=== PATIENT | female | born 1975 | race Caucasian/White ===

== ENCOUNTER 2016-09-25 16:08 | Outpatient (CLI) | payer MEDICAID ==
[2016-09-25 13:26] LABS: BASOPHILS # (AUTO) 0.1 10^3/uL (0.0-0.1); BASOPHILS % (AUTO) 1.1 %; EOSINOPHILS # (AUTO) 0.1 10^3/uL (0.0-0.7); EOSINOPHILS % (AUTO) 2.2 %; HCT - HEMATOCRIT 35.7 % (37.0-47.0); HGB - HEMOGLOBIN 12.3 g/dL (12.0-16.0); LYMPHOCYTES # (AUTO) 1.7 10^3/uL (1.5-3.5); LYMPHOCYTES % (AUTO) 35.7 %; MEAN CORPUSCULAR HEMOGLOBIN 31.4 pg (27.0-31.0); MEAN CORPUSCULAR HGB CONC 34.5 g/dL (32.0-36.0); MEAN CORPUSCULAR VOLUME 91.1 fL (81.0-99.0); MEAN PLATELET VOLUME 8.7 fL (7.9-10.8); MONOCYTES # (AUTO) 0.4 10^3/uL (0.0-1.0); NEUTROPHILS # (AUTO) 2.6 10^3/uL (1.5-6.6); RED BLOOD COUNT 3.92 10^6/uL (4.20-5.40); UNCORRECTED WHITE BLOOD COUNT 4.9 x10^3/uL; WHITE BLOOD COUNT 4.9 x10^3/uL (4.8-10.8)
[2016-09-25 13:47] LABS: ALBUMIN/GLOBULIN RATIO 1.4 (1.0-2.2); BILIRUBIN,TOTAL 0.2 mg/dL (0.2-1.0); CALCIUM 9.4 mg/dL (8.5-10.3); CREATININE 0.8 mg/dL (0.4-1.0); POTASSIUM 3.6 mmol/L (3.5-5.0); TOTAL PROTEIN 7.1 g/dL (6.7-8.2)
[2016-09-28 11:58] LABS: TEST RESULT REPORT (())
== END 2016-09-25 16:09 | disposition home or self-care (01) ==
LOC: LAB.N 16:08
PROVIDERS: ATTEND Psychiatry & Neurology Neurology
DX: G40.814 Lennox-Gastaut syndrome, intractable, without status epilepticus (principal); G40.319 Generalized idiopathic epilepsy and epileptic syndromes, intractable, without status epilepticus
CPT/HCPCS: 36415; 80053; 80175; 80346; 81599; 85025

== ENCOUNTER 2017-09-17 08:47 | Outpatient (CLI) | payer MEDICAID ==
[2017-09-17 12:51] LABS: BASOPHILS # (AUTO) 0.1 10^3/uL (0.0-0.1); EOSINOPHILS # (AUTO) 0.1 10^3/uL (0.0-0.7); EOSINOPHILS % (AUTO) 2.4 %; HGB - HEMOGLOBIN 12.3 g/dL (12.0-16.0); LYMPHOCYTES # (AUTO) 1.6 10^3/uL (1.5-3.5); MEAN CORPUSCULAR HEMOGLOBIN 31.2 pg (27.0-31.0); MEAN CORPUSCULAR HGB CONC 33.9 g/dL (32.0-36.0); MEAN CORPUSCULAR VOLUME 92.1 fL (81.0-99.0); MEAN PLATELET VOLUME 8.2 fL (7.9-10.8); MONOCYTES # (AUTO) 0.4 10^3/uL (0.0-1.0); MONOCYTES % (AUTO) 8.9 %; NEUTROPHILS # (AUTO) 2.7 10^3/uL (1.5-6.6); NEUTROPHILS % (AUTO) 54.7 %; PLT - PLATELET COUNT 245 10^3/uL (130-450); RED BLOOD COUNT 3.94 10^6/uL (4.20-5.40); RED CELL DISTRIBUTION WIDTH 13.2 % (12.0-15.0); WHITE BLOOD COUNT 4.9 x10^3/uL (4.8-10.8)
[2017-09-17 12:57] LABS: ALBUMIN/GLOBULIN RATIO 1.3 (1.0-2.2); BILIRUBIN,TOTAL 0.7 mg/dL (0.2-1.0); CALCIUM 8.9 mg/dL (8.5-10.3); CREATININE 0.7 mg/dL (0.4-1.0); TOTAL PROTEIN 7.2 g/dL (6.7-8.2)
== END 2017-09-17 08:48 | disposition home or self-care (01) ==
LOC: LAB.N 08:47
PROVIDERS: ATTEND Psychiatry & Neurology Neurology
DX: Z79.899 Other long term (current) drug therapy (principal)
CPT/HCPCS: 36415; 80053; 80175; 80346; 81599; 85025

== ENCOUNTER 2017-12-07 10:39 | Emergency (ER) | payer MEDICAID ==
[2017-12-07] MEDS ORDERED: TRIAMCINOLONE 40 MG/ML VIAL IM STA (11:23)
--- NOTE | 2017-12-07 11:25 | ED Physician Documentation ---
PD HANNA DYSON - Stated complaint Stated Complaint: R EAR SWELLING - Chief complaint Chief Complaint: General - History obtained from History obtained from: Family - History of Present Illness Timing - onset: How many days ago (5) Timing - duration: Days (5) Timing - details: Gradual onset, Still present Location: Right ear Improves: Other (drainage) Associated symptoms: Congestion, Cough. No: Fever Similar symptoms before: No diagnosis Recently seen: Clinic - Additional information Additional information: 41-year-old female with daily seizure disorder has the mental capacity of a 1- year-old and she is brought to the emergency department today by her parents who indicate that she woke up with swelling to her right ear 5 days ago and at that time she went into see her primary care doctor in this area was drained. They brought her back to see the primary the culture was negative for infection the swelling had reduced and this morning the swelling is back again. She does not appear to be bothered much by this does not appear to be in much pain. The patient herself is unable to assist with any history. Review of Systems Constitutional: denies: Fever Eyes: denies: Decreased vision Ears: reports: Ear pain, Other (swelling to the auricle) Nose: reports: Congestion Throat: denies: Sore throat Cardiac: denies: Chest pain / pressure, Palpitations Respiratory: reports: Cough. 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 - Past Surgical History Past Surgical History: No - Present Medications Home Medications: Ambulatory Orders Medication Instructions Recorded Confirmed Clobazam [Onfi] 20 - 30 mg PO BID 04/18/14 04/18/14 lamoTRIgine [Lamictal] 450 mg PO BID 04/18/14 04/18/14 - Allergies Allergies/Adverse Reactions: Allergies Allergy/AdvReac Type Severity Reaction Status Date / Time No Known Drug Allergies Allergy Verified 12/07/17 10:44 - Social History Does the pt smoke?: No Smoking Status: Never smoker Does the pt drink ETOH?: No Does the pt have substance abuse?: No - Immunizations Immunizations are current?: Yes PD ED PE NORMAL - Vitals Vital signs reviewed: Yes (normal ) - General General: No acute distress, Well developed/nourished, Other (no siginificant interaction with this patient who is carrying a small doll and does tickle the doll .) - HEENT HEENT: Atraumatic, PERRL, EOMI, Other (over the right auricle there is swelling and fluctuance. The area does not appear angry and there is not much in the way of inflamation. ) - Neck Neck: Supple, no meningeal sign, No bony TTP - Respiratory Respiratory: No respiratory distress - Derm Derm: Normal color, Warm and dry - Extremities Extremities: No deformity, No edema - Neuro Neuro: No motor deficit, No sensory deficit Eye Opening: Spontaneous Motor: Obeys Commands Verbal: Oriented GCS Score: 15 - Psych Psych: Normal mood, Normal affect Results - Vitals Vitals: Vital Signs - 24 hr 12/07/17 12/07/17 10:41 12:54 Temperature 36.1 C L Heart Rate 93 74 Respiratory 20 16 Rate Blood Pressure 98/77 90/62 O2 Saturation 99 99 Oxygen O2 Source Room air Procedures - Abscess I&D (location) right aruicle Preparation: Chlorhexadine, Lidocaine 1% Incision: Needle aspiration, Culture obtained Other: Pt tolerated well, Other (culture obtained and kenalog instilled.) PD MEDICAL DECISION MAKING - ED course Complexity details: reviewed old records, reviewed results, re-evaluated patient , considered differential, d/w family ED course: 41-year-old female with severe developmental delay developed an odd swelling to the auricle of her right ear. It does appear to have a tissue plane does not appear to be acutely injured or to hurt the patient much, and there is some mild inflammation associated with this. It does not appear grossly infected. The fluid is drained from this area and a culture is obtained and Kenalog is introduced into the space. She will need follow-up with ENT and this has been set up prior to her visit here. This does not seem to fit a plain hematoma and does not appear to be a simple abcess. The fluid has accumulated and distended the area again and this is drained and today we have instilled kenalog as well. I am favoring sandy-chondritis as a working diagnosis and welcome the input of the ENT. - Sepsis Event Vital Signs: Vital Signs - 24 hr 12/07/17 12/07/17 10:41 12:54 Temperature 36.1 C L Heart Rate 93 74 Respiratory 20 16 Rate Blood Pressure 98/77 90/62 O2 Saturation 99 99 Oxygen O2 Source Room air Departure - Departure Disposition: 01 Home, Self Care Clinical Impression: Perichondritis of auricle Qualifiers: Laterality: right Qualified Code(s): H61.001 - Unspecified perichondritis of right external ear Condition: Stable Follow-Up: [facility] [place] [Provider Group] Comments: Today it appears Crystal has an inflammatory process of the auricle of the right ear. The fluid drained today was thin and bloody and we did instill Kenalog into the space. The expectation with this is that the inflammation will be reduced and the ear will have a more normal appearance. Follow-up with ENT in [place] as previously planned as further treatment may be necessary. A culture has been obtained today and results will be available in 1-3 days. Discharge Date/Time: 12/07/17 12:54
[2017-12-07] MEDS ORDERED: LIDOCAINE 1% 2 ML VIAL ONE (11:26)
[2017-12-07] MEDS ORDERED: BUFFERED LIDOCAINE 10 ML SYRINGE SUBQ STA (11:26)
[2017-12-07 12:55] VITALS: BP 90/62
== END 2017-12-07 12:54 | disposition home or self-care (01) ==
LOC: ED 10:39
DX: H61.001 Unspecified perichondritis of right external ear (principal); G40.812 Lennox-Gastaut syndrome, not intractable, without status epilepticus
CPT/HCPCS: 69000; 87070; 87205; 96372; 99283

== ENCOUNTER 2018-07-18 19:04 | Emergency (ER) | payer MEDICAID ==
[2018-07-18 22:16] VITALS: BP 93/63
--- NOTE | 2018-07-18 23:16 | ED Physician Documentation ---
PD HPI HEAD INJURY - Stated complaint Stated Complaint: SZ/HEAD LAC - Chief complaint Chief Complaint: Laceration - History obtained from History obtained from: Family - History of Present Illness Mechanism of head injury: Fell Where head injury occurred: Home Timing - onset: Today Associated symptoms: No: LOC, AMS Recently seen: Not recently seen - Additional information Additional information: patient had seizure this evening, causing her to fall, struck head on door hinge, sustained scalp laceration. family says she has seizures on a daily basis and there was nothing unusual about this seizure except for the injury itself. family says patient exhibits no unusual behavior from baseline (mental capacity is that of a 1-2 year old, per family). 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 HEENT: None Psych: None Musculoskeletal: None Derm: None - Past Surgical History Past Surgical History: No - Present Medications Home Medications: Ambulatory Orders Medication Instructions Recorded Confirmed Clobazam [Onfi] 20 - 30 mg PO BID 04/18/14 04/18/14 lamoTRIgine [Lamictal] 450 mg PO BID 04/18/14 04/18/14 - Allergies Allergies/Adverse Reactions: Allergies Allergy/AdvReac Type Severity Reaction Status Date / Time No Known Drug Allergies Allergy Verified 07/18/18 19:34 - Social History Does the pt smoke?: No Smoking Status: Never smoker Does the pt drink ETOH?: No Does the pt have substance abuse?: No - Immunizations Immunizations are current?: Yes - POLST Patient has POLST: No PD ED PE NORMAL - Vitals Vital signs reviewed: Yes - General General: No acute distress, Well developed/nourished, Other (awake, alert, makes eye contact at times. ) - HEENT HEENT: PERRL, EOMI, Moist mucous membranes PD ED PE EXPANDED - HEENT HEENT Visual: 1 - laceration (3 cm length) Results - Vitals Vitals: Oxygen O2 Source Room air Procedures - Laceration (location) Scalp Length in cm: 3 Wound type: Linear Neurovascular status: Vascular intact Anesthesia: Lidocaine 1% Wound Preparation: Chlorhexadine Skin layer closure: Smith Other: Patient tolerated well, No complications, Dressing applied, Tetanus UTD Complexity: Simple PD MEDICAL DECISION MAKING - ED course Complexity details: considered differential, d/w family Departure - Departure Disposition: 01 Home, Self Care Clinical Impression: Laceration Condition: Good Instructions: ED Laceration Scalp Stitch Or Stap Follow-Up: Riley Palencia PA-C [Primary Care Provider] - (Follow up in 7-10 days for removal of the smith) Discharge Date/Time: 07/19/18 00:55
[2018-07-18] MEDS ORDERED: LIDOCAINE 1% 2 ML VIAL SUBQ STA (23:24)
== END 2018-07-19 00:55 | disposition home or self-care (01) ==
LOC: ED 19:04
DX: S01.01XA Laceration without foreign body of scalp, initial encounter (principal); W22.8XXA Striking against or struck by other objects, initial encounter; Y92.009 Unspecified place in unspecified non-institutional (private) residence as the place of occurrence of the external cause; G40.909 Epilepsy, unspecified, not intractable, without status epilepticus
CPT/HCPCS: 12002; 99282; 99283

== ENCOUNTER 2018-09-30 08:00 | Outpatient (CLI) | payer MEDICAID ==
[2018-09-30 12:41] LABS: EOSINOPHILS # (AUTO) 0.1 10^3/uL (0.0-0.7); LYMPHOCYTES # (AUTO) 1.8 10^3/uL (1.5-3.5); LYMPHOCYTES % (AUTO) 37.6 %; MEAN CORPUSCULAR HEMOGLOBIN 30.7 pg (27.0-31.0); MEAN CORPUSCULAR HGB CONC 33.4 g/dL (32.0-36.0); MEAN CORPUSCULAR VOLUME 91.9 fL (81.0-99.0); MEAN PLATELET VOLUME 8.2 fL (7.9-10.8); MONOCYTES # (AUTO) 0.4 10^3/uL (0.0-1.0); MONOCYTES % (AUTO) 7.2 %; NEUTROPHILS # (AUTO) 2.6 10^3/uL (1.5-6.6); NEUTROPHILS % (AUTO) 52.2 %; PLT - PLATELET COUNT 267 10^3/uL (130-450); RED BLOOD COUNT 4.23 10^6/uL (4.20-5.40); RED CELL DISTRIBUTION WIDTH 13.4 % (12.0-15.0); WHITE BLOOD COUNT 4.9 x10^3/uL (4.8-10.8)
[2018-09-30 12:52] LABS: ALBUMIN 4.1 g/dL (3.2-5.5); ALBUMIN/GLOBULIN RATIO 1.2 (1.0-2.2); BILIRUBIN,TOTAL 0.5 mg/dL (0.2-1.0); CALCIUM 9.1 mg/dL (8.5-10.3); CREATININE 0.8 mg/dL (0.4-1.0); TOTAL PROTEIN 7.4 g/dL (6.7-8.2)
== END 2018-09-30 23:59 | disposition home or self-care (01) ==
LOC: LAB.N 08:00
PROVIDERS: ATTEND Psychiatry & Neurology Neurology
DX: G40.814 Lennox-Gastaut syndrome, intractable, without status epilepticus (principal); Z51.81 Encounter for therapeutic drug level monitoring
CPT/HCPCS: 36415; 80053; 80175; 80346; 81599; 85025

== ENCOUNTER 2019-01-06 15:13 | Outpatient (CLI) | payer MEDICAID ==
--- NOTE | 2019-01-07 18:34 | XRAY Report ---
Reason: JOINT PAIN Procedure Date: 01/06/2019 Accession Number: [id number] / [id number] Procedure: XRN - Ankle 3 View RT CPT Code: FULL RESULT: EXAMS: RIGHT FOOT AND ANKLE RADIOGRAPHY. EXAM DATE: 01/06/2019 03:56 PM. CLINICAL HISTORY: Right foot/ankle joint pain, bruising, swelling. COMPARISON: FOOT 3 VIEW RT 01/06/2019 3:49 PM. TECHNIQUE: 3 views each foot and ankle. FINDINGS: Bones: Oblique mildly displaced fracture of the distal right fibula at the level of the syndesmosis. No other fracture seen in the right foot or ankle. Joints: Normal. No effusions. No subluxations in the foot or ankle. The ankle mortise is normally aligned. Soft Tissues: Ankle swelling. IMPRESSION: Oblique mildly displaced fracture of the distal right fibula at the level of the syndesmosis. No other fracture seen in the right foot or ankle. RADIA
--- NOTE | 2019-01-07 18:34 | XRAY Report ---
Reason: ANKLE PAIN Procedure Date: 01/06/2019 Accession Number: [id number] / [id number] Procedure: XRN - Foot 3 View RT CPT Code: FULL RESULT: EXAMS: RIGHT FOOT AND ANKLE RADIOGRAPHY. EXAM DATE: 01/06/2019 03:56 PM. CLINICAL HISTORY: Right foot/ankle joint pain, bruising, swelling. COMPARISON: FOOT 3 VIEW RT 01/06/2019 3:49 PM. TECHNIQUE: 3 views each foot and ankle. FINDINGS: Bones: Oblique mildly displaced fracture of the distal right fibula at the level of the syndesmosis. No other fracture seen in the right foot or ankle. Joints: Normal. No effusions. No subluxations in the foot or ankle. The ankle mortise is normally aligned. Soft Tissues: Ankle swelling. IMPRESSION: Oblique mildly displaced fracture of the distal right fibula at the level of the syndesmosis. No other fracture seen in the right foot or ankle. RADIA
== END 2019-01-06 15:14 | disposition home or self-care (01) ==
LOC: DI.N 15:13
PROVIDERS: ATTEND Physician Assistant Medical
DX: S82.431A Displaced oblique fracture of shaft of right fibula, initial encounter for closed fracture (principal)

== ENCOUNTER 2019-02-09 10:29 | Outpatient (CLI) | payer MEDICAID ==
--- NOTE | 2019-02-09 14:19 | XRAY Report ---
Reason: ANKLE FRACTURE Procedure Date: 02/09/2019 Accession Number: [id number] / [id number] Procedure: XRN - Ankle 3 View RT CPT Code: FULL RESULT: EXAM: RIGHT ANKLE RADIOGRAPHY EXAM DATE: 02/09/2019 10:46 AM. CLINICAL HISTORY: ANKLE FRACTURE. COMPARISON: ANKLE 3 VIEW RT 01/06/2019 3:59 PM. TECHNIQUE: 3 views. FINDINGS: Bones: Ongoing osseous remodeling including periosteal reaction formation and new bone deposition is seen in the region of the distal fibular fracture. Joints: The ankle mortise appears preserved on the stress view. No dislocation. Soft Tissues: Normal. No soft tissue swelling. IMPRESSION: Ongoing healing of distal fibular fracture. RADIA
== END 2019-02-09 10:30 | disposition home or self-care (01) ==
LOC: DI.N 10:29
PROVIDERS: ATTEND Physician Assistant Medical
DX: S82.831D Other fracture of upper and lower end of right fibula, subsequent encounter for closed fracture with routine healing (principal)

== ENCOUNTER 2019-04-08 15:53 | Outpatient (CLI) | payer MEDICAID ==
--- NOTE | 2019-04-09 09:13 | XRAY Report ---
Reason: ANKLE JOINT PAIN Procedure Date: 04/08/2019 Accession Number: [id number] / [id number] Procedure: XRN - Foot 3 View RT CPT Code: Final Report FULL RESULT: EXAM: RIGHT FOOT RADIOGRAPHY EXAM DATE: 04/08/2019 04:18 PM. CLINICAL HISTORY: Ankle joint pain. COMPARISON: ANKLE 3 VIEW RT 04/08/2019 4:12 PM. TECHNIQUE: 3 views. FINDINGS: Bones: The healing ankle fracture is better depicted on the ankle radiographs. No additional fractures are seen. Joints: Normal. No subluxations. Soft Tissues: Normal. No soft tissue swelling. IMPRESSION: No additional fractures are identified, healing distal fibula fracture. RADIA
--- NOTE | 2019-04-09 09:13 | XRAY Report ---
Reason: ANKLE JOINT PAIN Procedure Date: 04/08/2019 Accession Number: [id number] / [id number] Procedure: XRN - Ankle 3 View RT CPT Code: Final Report FULL RESULT: EXAM: RIGHT ANKLE RADIOGRAPHY EXAM DATE: 04/08/2019 04:12 PM. CLINICAL HISTORY: Ankle joint pain. COMPARISON: ANKLE 3 VIEW RT 02/09/2019 10:50 AM. TECHNIQUE: 3 views. FINDINGS: Bones: There is ongoing healing of a distal fibular fracture with new bone formation and partial osseous bridging, the fracture pattern remains visible. Joints: Normal. No effusion. No subluxations. The ankle mortise remains aligned. Soft Tissues: Soft tissue swelling is noted at the lateral malleolus. IMPRESSION: Ongoing healing of distal fibular fracture. RADIA
== END 2019-04-08 15:54 | disposition home or self-care (01) ==
LOC: DI.N 15:53
PROVIDERS: ATTEND Physician Assistant Medical
DX: S82.831D Other fracture of upper and lower end of right fibula, subsequent encounter for closed fracture with routine healing (principal)

== ENCOUNTER 2019-05-12 12:52 | Outpatient (CLI) | payer MEDICAID ==
--- NOTE | 2019-05-12 15:48 | XRAY Report ---
Reason: CLOSED FRACTURE OF DISTAL END OF RT FIBULA Procedure Date: 05/12/2019 Accession Number: [id number] / [id number] Procedure: XRN - Ankle 3 View RT CPT Code: Final Report FULL RESULT: EXAM: RIGHT ANKLE RADIOGRAPHY EXAM DATE: 05/12/2019 01:13 PM. CLINICAL HISTORY: CLOSED FRACTURE OF DISTAL END OF RT FIBULA. COMPARISON: FOOT 3 VIEW RT 04/08/2019 4:15 PM ANKLE 3 VIEW RT 04/08/2019 4:12 PM ANKLE 3 VIEW RT 02/09/2019 10:50 AM. TECHNIQUE: 3 views. FINDINGS: Bones: Oblique Lopez C fracture of the distal right fibula with mild callus formation, as before. Lucent fracture line is still visible, best seen on the lateral view. No new fracture or focal bone lesion. Joints: Normal. No effusion. No subluxations. The ankle mortise is normally aligned. Soft Tissues: Normal. No soft tissue swelling. IMPRESSION: Incompletely healed Lopez C fracture of the right distal fibula, similar to before. RADIA
== END 2019-05-12 12:53 | disposition home or self-care (01) ==
LOC: DI.N 12:52
PROVIDERS: ATTEND Podiatrist Foot & Ankle Surgery
DX: S82.831D Other fracture of upper and lower end of right fibula, subsequent encounter for closed fracture with routine healing (principal)

== ENCOUNTER 2019-10-08 07:57 | Outpatient (CLI) | payer MEDICARE, MEDICAID ==
[2019-10-08 11:51] LABS: BASOPHILS # (AUTO) 0.1 10^3/uL (0.0-0.1); BASOPHILS % (AUTO) 1.1 %; EOSINOPHILS # (AUTO) 0.2 10^3/uL (0.0-0.7); HGB - HEMOGLOBIN 12.3 g/dL (12.0-16.0); LYMPHOCYTES # (AUTO) 2.4 10^3/uL (1.5-3.5); LYMPHOCYTES % (AUTO) 42.4 %; MEAN CORPUSCULAR HEMOGLOBIN 30.7 pg (27.0-31.0); MEAN CORPUSCULAR HGB CONC 32.7 g/dL (32.0-36.0); MEAN CORPUSCULAR VOLUME 93.8 fL (81.0-99.0); MEAN PLATELET VOLUME 10.1 fL (7.9-10.8); MONOCYTES # (AUTO) 0.6 10^3/uL (0.0-1.0); NEUTROPHILS # (AUTO) 2.4 10^3/uL (1.5-6.6); NEUTROPHILS % (AUTO) 43.1 %; PLT - PLATELET COUNT 277 10^3/uL (130-450); RED BLOOD COUNT 4.01 10^6/uL (4.20-5.40); RED CELL DISTRIBUTION WIDTH 13.6 % (12.0-15.0); WHITE BLOOD COUNT 5.6 x10^3/uL (4.8-10.8)
[2019-10-08 12:05] LABS: ALBUMIN 4.2 g/dL (3.2-5.5); ALBUMIN/GLOBULIN RATIO 1.4 (1.0-2.2); BILIRUBIN,TOTAL 0.4 mg/dL (0.2-1.0); CALCIUM 8.9 mg/dL (8.5-10.3); CREATININE 0.8 mg/dL (0.4-1.0); TOTAL PROTEIN 7.3 g/dL (6.7-8.2)
== END 2019-10-08 23:59 | disposition home or self-care (01) ==
LOC: LAB.WCP 07:57
PROVIDERS: ATTEND Psychiatry & Neurology Neurology
DX: G40.814 Lennox-Gastaut syndrome, intractable, without status epilepticus (principal); Z79.899 Other long term (current) drug therapy; Z51.81 Encounter for therapeutic drug level monitoring
CPT/HCPCS: 36415; 80053; 80175; 80346; 81599; 85025

== ENCOUNTER 2019-12-10 20:47 | Emergency (ER) | payer MEDICARE, MEDICAID ==
[2019-12-10] MEDS ORDERED: LIDOCAINE-EPINEPH-TETRACAINE 3 ML SYRINGE TOP STA (22:24)
[2019-12-10] MEDS ORDERED: BUFFERED LIDOCAINE 10 ML SYRINGE IU ONE (22:25)
[2019-12-10] MEDS ORDERED: LIDOCAINE 1% 2 ML VIAL ONE (22:46)
[2019-12-10 23:44] VITALS: BP 110/68
--- NOTE | 2019-12-10 23:48 | ED Physician Documentation ---
History of Present Illness - Stated complaint Stated Complaint: FACE LAC - Chief complaint Chief Complaint: Neuro - History obtained from History obtained from: Family - Additonal information Additional information: Severely cognitive delay impaired patient brought in by parents after falling and hitting her lip and chin on her walker. Parent states she was walking along when her legs suddenly gave out and she struck her face on the walker. Parents state this happens from time to time the patient, though she has not been injured to this great degree before. They are not sure if she has broken a tooth. They have noted a lower lip laceration, as well as some abrasions on the patient's chin. They do not think the patient was injured in any other way. Patient is not able to offer any information for herself. Parents deny LOC. 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 : None HEENT: None Psych: None Musculoskeletal: None Derm: None - Past Surgical History Past Surgical History: No - Present Medications Home Medications: Ambulatory Orders Medication Instructions Recorded Confirmed Clobazam [Onfi] 20 - 30 mg PO BID 04/18/14 04/18/14 lamoTRIgine [Lamictal] 450 mg PO BID 04/18/14 04/18/14 - Allergies Allergies/Adverse Reactions: Allergies Allergy/AdvReac Type Severity Reaction Status Date / Time No Known Drug Allergies Allergy Verified 12/10/19 20:58 - Social History Does the pt smoke?: No Smoking Status: Never smoker Does the pt drink ETOH?: No Does the pt have substance abuse?: No - Immunizations Immunizations are current?: Yes - POLST Patient has POLST: No PD ED PE NORMAL - General General: No acute distress, Other (Patient is alertAnd makes eye contact, but does not answer questions) - HEENT HEENT: PERRL, EOMI, Moist mucous membranes, Other (Jagged, 3 cm laceration with through and through elements to patient's lower lip at the vermilion border. Movement of mandible noted; patient not able to comply with strength and range of motion exam. Moderate edema with abrasion noted over the chin and submental area. ). No: Dentition benign (Avulses tip of right maxillary lateral incisor. Unclear if acute or chronic.) - Neck Neck: Supple, no meningeal sign, No bony TTP - Respiratory Respiratory: No respiratory distress - Derm Derm: Normal color, Warm and dry, Other (Laceration to lip as above) - Extremities Extremities: No deformity, Normal ROM s pain (Grossly) - Neuro Neuro: Other (Alert; moves all 4 extremities. Per parents patient is at mental baseline) Results - Vitals Vitals: Vital Signs - 24 hr 12/10/19 12/10/19 12/10/19 20:56 20:58 22:13 Temperature 36.5 C Heart Rate 99 84 92 Respiratory 20 20 16 Rate Blood Pressure 110/71 107/69 112/72 O2 Saturation 100 97 100 12/10/19 23:43 Temperature Heart Rate 84 Respiratory 16 Rate Blood Pressure 110/68 O2 Saturation 100 Oxygen O2 Source Room air Procedures - Laceration (location) lower lip Length in cm: 3 Wound type: Irregular Neurovascular status: Sensory intact, Motor intact Tendon involvement: No: Tendon Injury Anesthesia: Lidocaine 1% Wound Preparation: Hibiclens Skin layer closure: Size #-0 - enter number (5.0 Vicryl), Sutures - enter # (7) Complexity: Intermediate PD MEDICAL DECISION MAKING - ED course Complexity details: considered differential, d/w patient ED course: Patient's laceration was primed with LAT, after which buffered lidocaine was used to numb the area. Patient did require some physical restraint from her own own family and staff, but once numb, was very calm and cooperative. Parents declined to have a mandibular x-ray series performed. I discussed wound care with them. We have used absorbable sutures, which I have explained to the parents. The patient should be taken to the dentist regarding the possible tooth tip avulsion if she seems to be uncomfortable. I discussed this with the parents. We discussed signs of infection and the usual indications for return. Departure - Departure Disposition: 01 Home, Self Care Clinical Impression: Lip laceration Qualifiers: Encounter type: initial encounter Qualified Code(s): S01.511A - Laceration without foreign body of lip, initial encounter Condition: Stable Instructions: ED Laceration Lip Mouth Ch Comments: Kassie's laceration has been repaired with absorbable sutures today. These will ultimately come apart on their own, though this can take anywhere from a week to several weeks. After 7 days, if you wish to have them removed, they may be removed. The wound should generally be kept clean and dry, though you may let water and soap run over the wound. However, please do not rub, scrub, or immerse the wound in order to avoid infection. There will most likely be some swelling and bruising; however, if you begin to notice redness spreading away from the wound, or if the formerly scabbed wound becomes "mushy" and splits apart, you should have the wound rechecked. If it seems like Deirdre's tooth is bothering her, please have her see her dentist. Discharge Date/Time: 12/10/19 23:55
== END 2019-12-10 23:55 | disposition home or self-care (01) ==
LOC: ED 20:47
DX: S01.511A Laceration without foreign body of lip, initial encounter (principal); W01.198A Fall on same level from slipping, tripping and stumbling with subsequent striking against other object, initial encounter; Y93.01 Activity, walking, marching and hiking
CPT/HCPCS: 12013; 99281; 99284

== ENCOUNTER 2020-10-11 08:51 | Outpatient (CLI) | payer MEDICARE, MEDICAID | END 2020-10-11 08:52 | disposition home or self-care (01) | LOC: LAB.N 08:51 | PROVIDERS: ATTEND Psychiatry & Neurology Neurology | DX: G40.814 Lennox-Gastaut syndrome, intractable, without status epilepticus (principal); Z51.81 Encounter for therapeutic drug level monitoring; Z79.899 Other long term (current) drug therapy | CPT/HCPCS: 36415; 80175; 80299; 81599 ==

== ENCOUNTER 2020-11-30 11:37 | Outpatient (CLI) | payer MEDICARE, MEDICAID | END 2020-11-30 23:59 | disposition home or self-care (01) | LOC: LAB.N 11:37 | PROVIDERS: ATTEND Family Medicine | DX: R50.9 Fever, unspecified (principal); Z20.822 Contact with and (suspected) exposure to COVID-19 ==

== ENCOUNTER 2021-03-10 08:00 | Outpatient (CLI) | payer MEDICARE, MEDICAID | END 2021-03-10 23:59 | disposition home or self-care (01) | LOC: LAB.N 08:00 | PROVIDERS: ATTEND Family Medicine | DX: U07.1 COVID-19 (principal) ==

== ENCOUNTER 2021-03-13 09:15 | Emergency (ER) | payer MEDICARE, MEDICAID ==
[2021-03-13] MEDS ORDERED: CASIRIVIMAB/IMDEVIMAB 10 ML in SODIUM CHLORIDE 0.9% 50 ML IV ONE (10:15)
[2021-03-13 10:40] VITALS: BP 102/54
--- NOTE | 2021-03-13 11:35 | ED Physician Documentation ---
History of Present Illness - Stated complaint Stated Complaint: INFUSION NEEDED - Chief complaint Chief Complaint: Resp - History obtained from History obtained from: Family - Additonal information Additional information: Pt is brought to the emergency department by mom for chief complaint of fever and cough after being diagnosed with Covid 3 days ago. Patient's father, who lives in the same house, was ill with Covid and that is the patient's only known sick contact. She is developmentally delayed and nonverbal and not able to offer any information for herself. Mom states the patient otherwise has seemed to be stable at home. They are here for monoclonal Ab infusion. 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 No other complaints at this time. 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 HEENT: None Psych: None Musculoskeletal: None Derm: None Other Past Medical History: developmental delay - Past Surgical History Past Surgical History: No - Present Medications Home Medications: Ambulatory Orders Medication Instructions Recorded Confirmed Clobazam [Onfi] 20 - 30 mg PO BID 04/18/14 04/18/14 lamoTRIgine [Lamictal] 450 mg PO BID 04/18/14 04/18/14 - Allergies Allergies/Adverse Reactions: Allergies Allergy/AdvReac Type Severity Reaction Status Date / Time No Known Drug Allergies Allergy Verified 03/13/21 10:19 - Social History Does the pt smoke?: No Smoking Status: Never smoker Does the pt drink ETOH?: No Does the pt have substance abuse?: No - Immunizations Immunizations are current?: Yes - POLST Patient has POLST: No PD ED PE NORMAL - Vitals Vital signs reviewed: Yes - General General: No acute distress, Well developed/nourished, Other (Patient is alert and nonverbal ) - HEENT HEENT: Atraumatic, PERRL, EOMI, Moist mucous membranes - Neck Neck: Supple, no meningeal sign - Cardiac Cardiac: RRR, No murmur - Respiratory Respiratory: No respiratory distress, Clear bilaterally - Derm Derm: Warm and dry - Extremities Extremities: No deformity - Neuro Neuro: Other (alert, nonverbal. Calm with minor redirection needed oc casionally.) - Psych Psych: Normal mood, Normal affect Results - Vitals Vitals: Oxygen O2 Source Room air PD MEDICAL DECISION MAKING - ED course Complexity details: considered differential, d/w family ED course: PT was found to have oxygen saturations 98-100% on room air. She was in no distress and had clear lungs. MAB infusion was given, and pt was stable for d/c home with no further interventions. We have discussed the usual indications for return. Departure - Departure Disposition: 01 Home, Self Care Clinical Impression: COVID Condition: Stable Instructions: COVID-19 [facility] Discharge Date/Time: 03/13/21 11:55
== END 2021-03-13 11:55 | disposition home or self-care (01) ==
LOC: ED 09:15
DX: U07.1 COVID-19 (principal)
CPT/HCPCS: 99281; 99284; J7040; M0243; Q0244

== ENCOUNTER 2021-10-11 08:36 | Outpatient (CLI) | payer MEDICARE, MEDICAID | END 2021-10-11 08:37 | disposition home or self-care (01) | LOC: LAB.N 08:36 | PROVIDERS: ATTEND Psychiatry & Neurology Neurology | DX: G40.814 Lennox-Gastaut syndrome, intractable, without status epilepticus (principal); Z51.81 Encounter for therapeutic drug level monitoring; Z79.899 Other long term (current) drug therapy | CPT/HCPCS: 80175; 80299; 81599 ==

== ENCOUNTER 2021-12-27 15:37 | Outpatient (CLI) | payer MEDICARE, MEDICAID ==
--- NOTE | 2021-12-27 16:43 | XRAY Report ---
PROCEDURE: Cervical Spine 2 View INDICATIONS: NECK STIFFNESS TECHNIQUE: 3 view(s) of the cervical spine were acquired. COMPARISON: None. FINDINGS: Bones: No fractures or dislocations to the T1 level. There are multilevel degenerative changes. Ant erior osteophytes are seen at C4-5 and C5-6. No significant disc space narrowing. The lateral masses of C1 appear intact on the odontoid view. No suspicious bony lesions. Soft tissues: No prevertebral soft tissue swelling. IMPRESSION: 1. Mild degenerative changes. 2. No significant disc space narrowing to suggest disc disease. Reviewed by: Isidro Flanagan on 12/27/2021 4:41 PM PDT Approved by: Isidro Flanagan on 12/27/2021 4:41 PM PDT Station ID: [id number]
== END 2021-12-27 15:38 | disposition home or self-care (01) ==
LOC: DI.N 15:37
PROVIDERS: ATTEND Registered Nurse
DX: M43.6 Torticollis (principal); M47.812 Spondylosis without myelopathy or radiculopathy, cervical region

== ENCOUNTER 2023-07-09 08:27 | Outpatient (CLI) | payer MEDICARE, MEDICAID | END 2023-07-09 08:28 | disposition home or self-care (01) | LOC: LAB.N 08:27 | PROVIDERS: ATTEND Psychiatry & Neurology Neurology | DX: G40.814 Lennox-Gastaut syndrome, intractable, without status epilepticus (principal); Z51.81 Encounter for therapeutic drug level monitoring; Z79.899 Other long term (current) drug therapy | CPT/HCPCS: 36415; 80175; 81599 ==

== ENCOUNTER 2023-07-28 10:33 | Emergency (ER) | payer MEDICARE, MEDICAID ==
[2023-07-28 11:31] LABS: BASOPHILS # (AUTO) 0.1 10^3/uL (0.0-0.1); BASOPHILS % (AUTO) 0.5 %; EOSINOPHILS % (AUTO) 0.2 %; HCT - HEMATOCRIT 35.7 % (37.0-47.0); HGB - HEMOGLOBIN 11.5 g/dL (12.0-16.0); LYMPHOCYTES # (AUTO) 0.9 10^3/uL (1.5-3.5); LYMPHOCYTES % (AUTO) 7.4 %; MEAN CORPUSCULAR HEMOGLOBIN 29.7 pg (27.0-31.0); MEAN CORPUSCULAR HGB CONC 32.2 g/dL (32.0-36.0); MEAN CORPUSCULAR VOLUME 92.2 fL (81.0-99.0); MEAN PLATELET VOLUME 9.3 fL (7.9-10.8); MONOCYTES # (AUTO) 1.1 10^3/uL (0.0-1.0); MONOCYTES % (AUTO) 8.9 %; NEUTROPHILS # (AUTO) 10.4 10^3/uL (1.5-6.6); NEUTROPHILS % (AUTO) 82.5 %; PLT - PLATELET COUNT 247 10^3/uL (130-450); RED BLOOD COUNT 3.87 10^6/uL (4.20-5.40); RED CELL DISTRIBUTION WIDTH 14.3 % (12.0-15.0); WHITE BLOOD COUNT 12.6 x10^3/uL (4.8-10.8)
--- NOTE | 2023-07-28 11:34 | ED Physician Documentation ---
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 She is on lamictal and clobazam. Family states fevers on with a wet cough. Patient was reportedly sleeping more than usual. She has been taking her medications as prescribed. No vomiting. No diarrhea. No constipation. No abdominal pain. They went to the walk-in clinic yesterday but they said that the walk-in clinic was about to close so they told him to come to the ER today if she was not better. 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 : None HEENT: None Psych: None Musculoskeletal: None Derm: None - Past Surgical History Past Surgical History: No - Present Medications Home Medications: Ambulatory Orders Medication Instructions Recorded Confirmed Clobazam [Onfi] 20 - 30 mg PO BID 04/18/14 07/28/23 lamoTRIgine [Lamictal] 450 mg PO BID 04/18/14 07/28/23 Amox/Clav 875/125 [Augmentin] 1 tab PO Q12H #20 tablet 07/28/23 Azithromycin [Zithromax] 250 mg PO DAILY #4 tablet 07/28/23 - Allergies Allergies/Adverse Reactions: Allergies Allergy/AdvReac Type Severity Reaction Status Date / Time No Known Drug Allergies Allergy Verified 07/28/23 10:55 - Social History Does the pt smoke?: No Smoking Status: Never smoker Does the pt drink ETOH?: No Does the pt have substance abuse?: No - Immunizations Immunizations are current?: Yes - POLST Patient has POLST: No PD ED PE NORMAL - Vitals Vital signs reviewed: Yes - General General: No acute distress, Well developed/nourished, Other (sleeping, but easily arousable) - HEENT HEENT: Other (dry lips and tongue) - Neck Neck: Supple, no meningeal sign - Cardiac Cardiac: RRR, Strong equal pulses - Respiratory Respiratory: No respiratory distress, Clear bilaterally - Abdomen Abdomen: Soft, Non tender, Non distended - Back Back: No CVA TTP, No spinal TTP - Derm Derm: Warm and dry - Extremities Extremities: No edema, No calf tenderness / cord - Neuro Neuro: Other (sleeping, but easily arousable.) Results - Vitals Vitals: Vital Signs - 24 hr 07/28/23 07/28/23 07/28/23 10:51 11:53 12:30 Temperature 36.9 C 36.9 C Heart Rate 98 91 87 Respiratory 24 20 22 Rate Blood Pressure 88/55 L 102/67 107/67 O2 Saturation 98 97 97 07/28/23 07/28/23 12:57 13:26 Temperature Heart Rate 99 99 Respiratory 16 16 Rate Blood Pressure 106/62 102/62 O2 Saturation 95 96 Oxygen O2 Source Room air - Labs Labs: Laboratory Tests 07/28/23 07/28/23 07/28/23 11:14 11:14 11:14 WBC 12.6 H RBC 3.87 L Hgb 11.5 L Hct 35.7 L MCV 92.2 MCH 29.7 MCHC 32.2 RDW 14.3 Plt Count 247 MPV 9.3 Neut # (Auto) 10.4 H Lymph # (Auto) 0.9 L [place] # (Auto) 1.1 H Eos # (Auto) 0.0 Baso # (Auto) 0.1 Absolute Nucleated RBC 0.00 Nucleated RBC % 0.0 Sodium 134 L Potassium 4.0 Chloride 102 Carbon Dioxide 28 Anion Gap 4.0 L BUN 10 Creatinine 0.8 Estimated GFR (MDRD) 77 L Glucose 128 H Lactic Acid 1.1 Calcium 9.8 Total Bilirubin 0.4 AST 10 ALT 12 Alkaline Phosphatase 90 Total Protein 6.9 Albumin 3.8 Globulin 3.1 Albumin/Globulin Ratio 1.2 Lipase 28 Nasal Adenovirus (PCR) Nasal B. parapertussis DNA (PCR) Nasal Coronavir 229E PCR Nasal Coronavir HKU1 PCR Nasal Coronavir NL63 PCR Nasal Coronavir OC43 PCR Nasal Enterovir/Rhinovir PCR Nasal Influenza B PCR Nasal Influenza A PCR Nasal Parainfluen 1 PCR Nasal Parainfluen 2 PCR Nasal Parainfluen 3 PCR Nasal Parainfluen 4 PCR Nasal RSV (PCR) Nasal B.pertussis DNA PCR Nasal C.pneumoniae (PCR) Alexi Human Metapneumo PCR Nasal M.pneumoniae (PCR) Nasal SARS-CoV-2 (PCR) 07/28/23 11:44 WBC RBC Hgb Hct MCV MCH MCHC RDW Plt Count MPV Neut # (Auto) Lymph # (Auto) [place] # (Auto) Eos # (Auto) Baso # (Auto) Absolute Nucleated RBC Nucleated RBC % Sodium Potassium Chloride Carbon Dioxide Anion Gap BUN Creatinine Estimated GFR (MDRD) Glucose Lactic Acid Calcium Total Bilirubin AST ALT Alkaline Phosphatase Total Protein Albumin Globulin Albumin/Globulin Ratio Lipase Nasal Adenovirus (PCR) NOT DETECTED Nasal B. parapertussis DNA (PCR) NOT DETECTED Nasal Coronavir 229E PCR NOT DETECTED Nasal Coronavir HKU1 PCR NOT DETECTED Nasal Coronavir NL63 PCR NOT DETECTED Nasal Coronavir OC43 PCR NOT DETECTED Nasal Enterovir/Rhinovir PCR NOT DETECTED Nasal Influenza B PCR NOT DETECTED Nasal Influenza A PCR NOT DETECTED Nasal Parainfluen 1 PCR NOT DETECTED Nasal Parainfluen 2 PCR NOT DETECTED Nasal Parainfluen 3 PCR NOT DETECTED Nasal Parainfluen 4 PCR NOT DETECTED Nasal RSV (PCR) NOT DETECTED Nasal B.pertussis DNA PCR NOT DETECTED Nasal C.pneumoniae (PCR) NOT DETECTED Alexi Human Metapneumo PCR NOT DETECTED Nasal M.pneumoniae (PCR) NOT DETECTED Nasal SARS-CoV-2 (PCR) NOT DETECTED - Rads (name of study) cxr Relevant Findings:: Final report received, See rad report PD Medical Decision Making - ED course Complexity details: reviewed results, re-evaluated patient, considered differential, d/w patient ED course: Patient is a 47-year-old female with Ray Gastaut syndrome. She normally has low blood pressures. Her blood pressure return to her normal baseline after IV fluids. Energy level is improved. Appears to have mild pneumonia on chest x- ray. Placed on Rocephin and azithromycin. Lactate is normal. Not hypoxic. No respiratory distress. Tolerating p.o. without difficulty. Patient does not appear to be septic. We will have the patient follow-up with her doctor for further care and placed on antibiotics for home. Parents counseled regarding signs and symptoms for which I believe and urgent re-evaluation would be necessary. Parents with good understanding of and agreement to plan and is comfortable going home at this time This document was made in part using voice recognition software. While efforts are made to proofread this document, sound alike and grammatical errors may occur. Departure - Departure Disposition: 01 Home, Self Care Clinical Impression: Pneumonia Qualifiers: Pneumonia type: due to unspecified organism Laterality: bilateral Lung location: unspecified part of lung Qualified Code(s): J18.9 - Pneumonia, unspecified organism Condition: Good Instructions: ED Pneumonia Adult Follow-Up: your,doctor in 3 days for recheck [Other] Prescriptions: Amox/Clav 875/125 [Augmentin] 1 tab PO Q12H #20 tablet Azithromycin [Zithromax] 250 mg PO DAILY #4 tablet Comments: Your antibiotics were sent to [facility] in [place]. Please make sure she is drinking plenty of fluids at home. Please take all antibiotics until gone. She was given her antibiotics for today already in the emergency department so you can start the other antibiotics tomorrow. Her x-ray is consistent with atypical pneumonia. Her respiratory PCR is negative for COVID, influenza, etc. PROCEDURE: Chest 1V INDICATIONS: cough, fever TECHNIQUE: One view of the chest was acquired. COMPARISON: None. FINDINGS: Surgical changes and devices: None. Lungs and pleura: Low lung volumes can be seen, with patchy interstitial infiltrates. No pneumothorax or pleural effusions can be seen. Mediastinum: Mediastinal contours appear normal. Heart size is normal. Bones and chest wall: No suspicious bony lesions. Overlying soft tissues appear unremarkable. IMPRESSION: Patchy interstitial infiltrates can be seen. Please consider atypical infiltrate versus pulmonary edema. Low lung volumes noted. Forms: PCP List Discharge Date/Time: 07/28/23 13:29
[2023-07-28] MEDS: SODIUM CHLORIDE 0.9% 1,000 ML IV STA ×3 (11:39→12:48)
--- NOTE | 2023-07-28 11:42 | XRAY Report ---
PROCEDURE: Chest 1V INDICATIONS: cough, fever TECHNIQUE: One view of the chest was acquired. COMPARISON: None. FINDINGS: Surgical changes and devices: None. Lungs and pleura: Low lung volumes can be seen, with patchy interstitial infiltrates. No pneumothora x or pleural effusions can be seen. Mediastinum: Mediastinal contours appear normal. Heart size is normal. Bones and chest wall: No suspicious bony lesions. Overlying soft tissues appear unremarkable. IMPRESSION: Patchy interstitial infiltrates can be seen. Please consider atypical infiltrate versus pulmonary alexander ma. Low lung volumes noted. Reviewed by: Sahil Ambrocio MD on 07/28/2023 10:41 AM DIANNE Approved by: Sahil Ambrocio MD on 07/28/2023 10:41 AM DIANNE Station ID: [id number]
[2023-07-28 11:45] LABS: ALBUMIN 3.8 g/dL (3.2-5.5); ALBUMIN/GLOBULIN RATIO 1.2 (1.0-2.2); BILIRUBIN,TOTAL 0.4 mg/dL (0.2-1.0); CALCIUM 9.8 mg/dL (8.5-10.3); CREATININE 0.8 mg/dL (0.6-1.3); TOTAL PROTEIN 6.9 g/dL (6.4-8.9)
[2023-07-28 12:42] LABS: B. PARAPERTUSSIS- RESP PCR PAN NOT DETECTED; B. PERTUSSIS- RESP PCR PANEL NOT DETECTED; C. PNEUMONIAE- RESP PCR PANEL NOT DETECTED; CORONAVIRUS 229E-RESP PCR NOT DETECTED; CORONAVIRUS HKU1-RESP PCR NOT DETECTED; CORONAVIRUS NL63-RESP PCR NOT DETECTED; CORONAVIRUS OC43-RESP PCR NOT DETECTED; HUMAN METAPNEUMOVIRUS NOT DETECTED; INFLUENZA A- RESP PCR PANEL NOT DETECTED; INFLUENZA B - RESP PCR PANEL NOT DETECTED; M. PNEUMONIAE- RESP PCR PANEL NOT DETECTED; PARAINFLUENZA VIRUS 1 NOT DETECTED; PARAINFLUENZA VIRUS 2 NOT DETECTED; PARAINFLUENZA VIRUS 3 NOT DETECTED; PARAINFLUENZA VIRUS 4 NOT DETECTED; RHINOVIRUS/ENTEROVIRUS NOT DETECTED; RSV- RESP PCR PANEL NOT DETECTED; SARS-CoV-2 -RESP PCR PANEL NOT DETECTED
[2023-07-28] MEDS: cefTRIAXone 1 GM VIAL IVP STA (12:48)
[2023-07-28] MEDS: AZITHROMYCIN 250 MG TABLET PO STA (12:48)
[2023-07-28 13:28] VITALS: BP 102/62; O2SAT 96
== END 2023-07-28 13:29 | disposition home or self-care (01) ==
LOC: ED 10:33
DX: J18.9 Pneumonia, unspecified organism (principal); Z11.52 Encounter for screening for COVID-19
CPT/HCPCS: 36415; 71045; 80053; 83605; 83690; 85025; 87040; 87633; 96361; 96374; 99283; 99284; A9270

== ENCOUNTER 2023-10-18 09:21 | Outpatient (CLI) | payer MEDICARE, MEDICAID | END 2023-10-18 09:22 | disposition home or self-care (01) | LOC: LAB.N 09:21 | PROVIDERS: ATTEND Psychiatry & Neurology Neurology | DX: G40.814 Lennox-Gastaut syndrome, intractable, without status epilepticus (principal); Z51.81 Encounter for therapeutic drug level monitoring; Z79.899 Other long term (current) drug therapy | CPT/HCPCS: 36415; 80175; 81599 ==

== ENCOUNTER 2024-01-16 08:37 | Outpatient (CLI) | payer MEDICARE, MEDICAID | END 2024-01-16 08:38 | disposition home or self-care (01) | LOC: LAB.N 08:37 | PROVIDERS: ATTEND Psychiatry & Neurology Neurology | DX: Z51.81 Encounter for therapeutic drug level monitoring (principal); Z79.899 Other long term (current) drug therapy | CPT/HCPCS: 36415; 80175; 81599 ==